=== PATIENT | female | born 1985 | race Caucasian/White ===

== ENCOUNTER 2022-10-30 14:38 | Emergency (ER) | payer BC, SELFPAY ==
[2022-10-30 14:57] VITALS: BP 124/89; PULSE 67; RESP 16; TEMP 36.6; O2SAT 99; BMI 33.5
--- NOTE | 2022-10-30 16:27 | ED_ITS ---
HPI - Head Injury General Chief complaint: Head Injury/Pain Stated complaint: hit head yesterday Time Seen by Provider: 10/30/22 16:08 History of Present Illness HPI Narrative: This 36-year-old female comes in because friend stated that she should be evaluated because of a head injury that occurred yesterday. She states that she was in a public restroom with the need to void urine and she became lightheaded. Very quickly she fell and hit her head on the toilet. She immediately rec overed and states that she has a mild headache currently. She does have some nausea but states that this is typical when she is menstruating as she is currently doing so now. She did bump the right side of her head but there is no sign of injury, no abrasion, laceration, or hematoma. She is not reporting any neurologic deficits. She does not report any previous history of loss of consciousness. Related Data Home Medications Medication Instructions Recorded Confirmed hydroxyzine HCl 10 mg tablet 10 mg PO TID PRN 10/30/22 10/30/22 Previous Rx's Medication Instructions Recorded ondansetron HCl 4 mg tablet 4 mg PO Q6H #20 tabs 10/30/22 Allergies Allergy/AdvReac Type Severity Reaction Status Date / Time ciprofloxacin Allergy Mild Rash Verified 10/30/22 14:56 citalopram Allergy Intermediate hallucinati Uncoded 10/30/22 14:56 ons Review of Systems Status of ROS: Reports: 10 or more systems reviewed and unremarkable except as noted in History and below Narrative: Constitutional: No fevers, no weight gain or loss. Eyes: No discharge. No vision changes. HENT: No congestion, no sore throat, no ear pain. Cardiovascular: No chest pain, no palpitations. Respiratory: No shortness of breath, no wheezes, no cough. Gastrointestinal: No abdominal pain, no vomiting, no diarrhea. Genitourinary: No dysuria, no hematuria. Musculoskeletal: Normal range of motion. Skin: No rashes, no pruritis. Neurological: No dizziness, weakness, sensory change, speech change. Endo/Heme/Allergies: No bruising or bleeding. No polydipsia. Pysch: no suicidality, no anxiety, no insomnia. All other systems reviewed and are negative. PFSH PFSH Social History Smoking Status: Never smoker How often do you have a drink containing alcohol: never AUDIT-C Alcohol total score: 0 Non-prescribed substance use: denies use service: No Exam Narrative: Exam Narrative: Constitutional: Well-developed, well-nourished, no acute distress. HEENT: Normocephalic, atraumatic. Neck: Normal range of motion. Nontender. Supple. Heart: Regular. No murmurs. Normal rate. Intact distal pulses. Lungs: Clear to auscultation. No chest discomfort. No wheezes, rhonchi, or rales. Abdomen: Normal bowel sounds. Nontender. No rebound tenderness. Genitalia: Deferred. Back: No midline tenderness. Normal range of motion. Extremities: Normal range of motion. No injury. Skin: Intact. No rash. Warm. No erythema or pallor. Neurologic: No altered sensation. No weakness. Alert and oriented. Psychiatric: No suicidality. No anxiety or depression. No insomnia. Nursing notes and vitals signs are reviewed. Const: Vital Signs, click to edit/add: Vital Signs - 24 hr 10/30/22 14:57 Temperature 97.8 F Pulse Rate [Right Pulse Oximeter] 67 Respiratory Rate 16 Blood Pressure [Ri ght Upper Arm] 124/89 Pulse Oximetry 99 Oxygen Delivery Me thod Room Air Course Vital Signs Vital signs: Initial Vital Signs Temperature 97.8 F 10/30/22 14:57 Temperature Source Temporal Artery Scan 10/30/22 14:57 Pulse Rate 67 10/30/22 14:57 Respiratory Rate 16 10/30/22 14:57 Blood Pressure 124/89 10/30/22 14:57 Blood Pressure Mean 100 10/30/22 14:57 Blood Pressure Position Sitting 10/30/22 14:57 Pulse Oximetry 99 10/30/22 14:57 Oxygen Delivery Method Room Air 10/30/22 14:57 Vital Signs Temperature 97.8 F 10/30/22 14:57 Pulse Rate 67 10/30/22 14:57 Respiratory Rate 16 10/30/22 14:57 Blood Pressure 124/89 10/30/22 14:57 Pulse Oximetry 99 10/30/22 14:57 Oxygen Delivery Method Room Air 10/30/22 14:57 Temperature 97.8 F 10/30/22 14:57 Pulse Rate 67 10/30/22 14:57 Respiratory Rate 16 10/30/22 14:57 Blood Pressure 124/89 10/30/22 14:57 Pulse Oximetry 99 10/30/22 14:57 Oxygen Delivery Method Room Air 10/30/22 14:57 MDM - Head Injury MDM Narrative Medical decision making narrative: This patient had syncope with prodrome yesterday. She did bump her head when she fell and reports a mild headache currently. She is not showing any sign of neurologic compromise and is not tripping triggers regarding guidelines as to when to do a CT scan of the head. I did discuss this imaging option which she declined in a process of shared decision making. As for the cause for her syncope, I did also describe various circumstances that can contribute to decreased supply to her brain cells. Again she declined any further lab or imaging studies in this regard. She may be having some mild concussion symptoms. I advised her regarding this and appropriate activities going forward as she recovers. The patient is reassured with these findings and states again that she would not have come in if it were not for some others around who were insisting on this. Discharge Plan Discharge Clinical Impression: Syncope Patient Disposition: Home, Self-Care Condition: Improved Additional Instructions: Activity as tolerated. Take medication as needed and directed. Follow up with MD or return if worsening. Prescriptions: New ondansetron HCl 4 mg tablet 4 mg PO Q6H Qty: 20 0RF No Action hydroxyzine HCl 10 mg tablet 10 mg PO TID PRN Stand Alone Forms: [employer] Info Instructions
[2022-10-30 16:42] VITALS: BP 128/76; PULSE 71; RESP 20; O2SAT 99
== END 2022-10-30 16:50 | disposition home or self-care (01) ==
LOC: ED 16:50
PROVIDERS: Emergency Provider Emergency Medicine Emergency Medical Services
DX: R55 Syncope and collapse (principal)
CPT/HCPCS: 99283; 99284